=== PATIENT | female | born 1990 | race Caucasian/White ===

== ENCOUNTER 2020-09-10 16:40 | Emergency (ER) | payer OTHER ==
[2020-09-10] MEDS ORDERED: Metoclopramide HCl 10 MG/2 ML VIAL ONE (17:26)
[2020-09-10] MEDS ORDERED: Magnesium 2 GM/50 ML BAG (IN WATER) ONE (17:26)
[2020-09-10] MEDS ORDERED: diphenhydrAMINE 50 MG/ML VIAL ONE (17:26)
== END 2020-09-10 20:42 | disposition home or self-care (01) ==
LOC: ERS 16:40
DX: G97.1 Other reaction to spinal and lumbar puncture (principal)
CPT/HCPCS: 96365; 96375; J1200; J2765; J3475

== ENCOUNTER → 2020-09-13 | Day surgery (SDC) | payer OTHER | LOC: SDC/OP 11:36 | PROVIDERS: ATTEND Anesthesiology | PROC: 3E0S3GC Introduction of Other Therapeutic Substance into Epidural Space, Percutaneous Approach (ICD-10-PCS; principal; 2020-09-13) | DX: G97.1 Other reaction to spinal and lumbar puncture (principal) | CPT/HCPCS: 62272 ==